=== PATIENT | female | born 1945 | race Caucasian/White ===

== ENCOUNTER 2017-09-16 22:36 | Emergency (ER) | payer OTHER ==
[2017-09-16] MEDS ORDERED: ASPIRIN 325 MG TABLET ONE (22:45)
[2017-09-16] MEDS ORDERED: ONDANSETRON HCL 4 MG/2 ML VIAL ONE (23:12)
[2017-09-16] MEDS ORDERED: MORPHINE SULFATE 4 MG/1ML SYG ONE (23:13)
[2017-09-16 23:28] LABS: BASOPHILS % (AUTO) 0.5 % (0.0-5.0); EOSINOPHILS % (AUTO) 0.2 % (0.0-8.0); HEMATOCRIT 38.8 % (36-48); MEAN CORPUSCULAR HEMOGLOBIN 32.6 pg (27.0-33.0); MEAN CORPUSCULAR HGB CONC 32.9 g/dL (32.0-36.0); MEAN CORPUSCULAR VOLUME 98.9 fL (79-99); MONOCYTES % (AUTO) 6.6 % (3.0-13.0); NEUTROPHILS % (AUTO) 84.7 % (40.0-77.0); PLATELET COUNT (AUTO) 262 K/uL (130-400); RED BLOOD CELL COUNT(AUTO) 3.92 MIL/uL (4.00-5.50); RED CELL DISTRIBUTION WIDTH 12.3 % (11.0-15.5); WHITE BLOOD COUNT (AUTO) 20.1 K/uL (4.8-10.8)
[2017-09-16 23:38] LABS: POTASSIUM 3.8 mmol/L (3.5-5.1)
[2017-09-16 23:39] LABS: INR 0.93 (0.85-1.15); PROTHROMBIN TIME 9.8 SEC (9.6-11.6)
[2017-09-17] LABS: ALBUMIN 4.2 g/dL (3.5-5.0); BILIRUBIN,TOTAL 0.4 mg/dL (0.2-1.0); CREATINE KINASE MB 0.5 ng/mL (0.5-3.6); TOTAL PROTEIN, SERUM 7.9 g/dL (6.0-8.3)
[2017-09-17] MEDS ORDERED: IOPAMIDOL-370 75 ML VIAL IV ONE (00:11)
[2017-09-17] MEDS ORDERED: MORPHINE SULFATE 2 MG/ML 1ML SYG ONE (00:14)
[2017-09-17] MEDS ORDERED: CEFTRIAXONE SODIUM 1 GM ONE (02:16)
[2017-09-17] MEDS ORDERED: AZITHROMYCIN 250 MG TABLET PO ONE (02:17)
== END 2017-09-17 02:52 | disposition home or self-care (01) ==
LOC: EDH 22:36
DX: R09.1 Pleurisy (principal); E78.5 Hyperlipidemia, unspecified; Z72.0 Tobacco use; Z98.890 Other specified postprocedural states; Z88.8 Allergy status to other drugs, medicaments and biological substances
CPT/HCPCS: 36415; 71045; 71100; 71275; 80053; 82550; 82553; 83874; 84484; 85025; 85378; 85610; 85730; 93005; 94761; 96374; 96375; 96376; 99285; J0696; J2270; J2405; Q9967

== ENCOUNTER → 2018-08-25 | Outpatient (CLI) | payer OTHER | END | disposition home or self-care (01) | LOC: RAH 09:49 | PROVIDERS: ATTEND Family Medicine | DX: M47.892 Other spondylosis, cervical region (principal); M85.88 Other specified disorders of bone density and structure, other site | CPT/HCPCS: 72040 ==

== ENCOUNTER 2019-02-06 21:27 | Inpatient (IN) | payer OTHER ==
[~2019-02-06] VITALS: Ht 157.5 cm; Wt 38.9 kg
[2019-02-06 22:01] LABS: BASOPHILS % (AUTO) 0.7 % (0.0-5.0); EOSINOPHILS % (AUTO) 0.4 % (0.0-8.0); HEMATOCRIT 37.8 % (36-48); LYMPHOCYTES % (AUTO) 24.4 % (21.0-51.0); MEAN CORPUSCULAR HGB CONC 33.5 g/dL (32.0-36.0); MEAN CORPUSCULAR VOLUME 98.3 fL (79-99); MONOCYTES % (AUTO) 12.6 % (3.0-13.0); NEUTROPHILS % (AUTO) 61.9 % (40.0-77.0); PLATELET COUNT (AUTO) 325 K/uL (130-400); RED BLOOD CELL COUNT(AUTO) 3.84 MIL/uL (4.00-5.50); RED CELL DISTRIBUTION WIDTH 12.4 % (11.0-15.5); WHITE BLOOD COUNT (AUTO) 7.4 K/uL (4.8-10.8)
[2019-02-06 22:13] LABS: CREATININE 0.9 mg/dL (0.5-1.5); POTASSIUM 4.1 mmol/L (3.5-5.1)
[2019-02-06 22:18] LABS: BILIRUBIN,TOTAL 0.6 mg/dL (0.2-1.0); TOTAL PROTEIN, SERUM 7.4 g/dL (6.0-8.3)
[2019-02-06] MEDS ORDERED: LIDOCAINE 5% TOPICAL PATCH TP ONE (22:36)
[2019-02-06] MEDS ORDERED: KETOROLAC TROMETHAMINE 30MG/ML ONE (22:36)
[2019-02-06] MEDS ORDERED: SODIUM CHLORIDE 0.9% 0 ML IV ONE (22:37)
[2019-02-06] MEDS ORDERED: SODIUM CHLORIDE 0.9% 500ML 500 ML IV ONE (22:38)
[2019-02-07] VITALS (7 sets, daily range): BP systolic 99–165; BP diastolic 59–74
--- NOTE | 2019-02-07 02:30 | NUR ---
ENEMA FLEETS ENEMA ADMINISTERED PER RECTUM X1, YELLOWISH EFFLUENT ,MODERATE AMOUNT PER BM X1 , BEDSIDE COMMODE IN PLACE Addendum: 02/07/19 at 0336 by LAXMI LUND RN RN Amended: Links added.
--- NOTE | 2019-02-07 02:35 | NUR ---
PO ADMINISTRATION GOLYTELY PREP INITIATED ORDERED,PT INSTRUCTED ,VERBALIZED UNDERSTANDING
[2019-02-07] MEDS ORDERED: MORPHINE SULFATE 2 MG/ML 1ML SYG IVP PRN (03:30)
[2019-02-07] MEDS ORDERED: PEG 3350/NA SULF,BICARB,CL/KCL 4000 ML SOLN PO SCH (03:30)
[2019-02-07] MEDS ORDERED: ONDANSETRON HCL 4 MG/2 ML VIAL IVP PRN (03:30)
[2019-02-07] MEDS ORDERED: TRAZ-187 PO (03:41)
[2019-02-07] MEDS ORDERED: OXYB5TAB10 PO (03:41)
[2019-02-07] MEDS ORDERED: VITA400C70 PO (03:41)
[2019-02-07] MEDS ORDERED: CHOL200074 PO (03:41)
[2019-02-07] MEDS ORDERED: CYCL10TA7 PO (03:41)
[2019-02-07] MEDS ORDERED: PRAV20TA4 PO (03:41)
--- NOTE | 2019-02-07 05:52 | NUR ---
ENEMA FLEETS ENEMA ADMINISTERED ORDERED, WITH GOOD RESULT , X1 BM MODERATE AMOUNT PASTY CONSISTENCY ,BROWN IN COLOR,TOLERATED WELL Addendum: 02/07/19 at 0554 by LAXMI LUND RN RN Amended: Links added.
--- NOTE | 2019-02-07 11:26 | NUR ---
INITIAL: Met with pt this morning to discuss dcp. Pt states that she lives alone. Prior to admission she was independent w ambulation and ADls. Pt states she has access to a walker and cane if needed. Per pt she was not receiving any services prior to admission. Pt states that she feels safe and comfortable to return home at [place]. She mentions that her brother may be able to provide transportation @ [place]. Will continue to follow and wait for Md recommendations. Addendum: 02/07/19 at 1127 by MARLEE FREEMAN CM Amended: Links added.
[2019-02-07] MEDS ORDERED: HYDROMORPHONE HCL 2 MG/ML VIAL IVP PRN (15:45)
[2019-02-07] MEDS ORDERED: HYDRALAZINE HCL 20 MG/ML VIAL IV PRN (15:45)
[2019-02-07] MEDS ORDERED: ZOLPIDEM TARTRATE 5 MG TAB PO PRN (15:45)
[2019-02-07] MEDS ORDERED: GUAIFENESIN-DM 200/20 MG 10 ML PO PRN (15:45)
[2019-02-07] MEDS ORDERED: LACTULOSE 20 GM/30 ML UDCUP PO PRN (15:45)
[2019-02-07] MEDS ORDERED: ACETAMINOPHEN 325 MG TAB PO PRN ×2 (15:45)
[2019-02-07] MEDS ORDERED: METOPROLOL TARTRATE 1 MG/ML 5ML VIAL IV PRN (15:45)
[2019-02-07] MEDS ORDERED: HYDROCODONE/ACETAMINOPHEN 5/325 MG TAB PO PRN (15:45)
[2019-02-07] MEDS ORDERED: ALPRAZOLAM 0.25 MG TABLET PO PRN (15:45)
[2019-02-07] MEDS ORDERED: PHARMACY COMMUNICATION MISC SCH (16:00)
[2019-02-07] MEDS: IPRATROPIUM/ALBUTEROL SULFATE 3 ML SOLUTION IH SCH ×2 (18:00→21:39)
[2019-02-07] MEDS: HYDROMORPHONE HCL 0.5 MG/0.5 ML ML IVP PRN (18:36)
[2019-02-07] MEDS ORDERED: IPRATROPIUM/ALBUTEROL SULFATE 3 ML SOLUTION IH PRN (22:15)
[2019-02-08 03:00] VITALS: BP 142/75
[2019-02-08 05:18] LABS: BASOPHILS % (AUTO) 1.1 % (0.0-5.0); EOSINOPHILS % (AUTO) 1.4 % (0.0-8.0); HEMATOCRIT 32.4 % (36-48); LYMPHOCYTES % (AUTO) 25.3 % (21.0-51.0); MEAN CORPUSCULAR HEMOGLOBIN 33.4 pg (27.0-33.0); MEAN CORPUSCULAR HGB CONC 34.1 g/dL (32.0-36.0); NEUTROPHILS % (AUTO) 60.2 % (40.0-77.0); PLATELET COUNT (AUTO) 309 K/uL (130-400); RED BLOOD CELL COUNT(AUTO) 3.31 MIL/uL (4.00-5.50); RED CELL DISTRIBUTION WIDTH 12.1 % (11.0-15.5); WHITE BLOOD COUNT (AUTO) 5.7 K/uL (4.8-10.8)
[2019-02-08 05:28] LABS: BILIRUBIN,TOTAL 0.6 mg/dL (0.2-1.0); CREATININE 0.8 mg/dL (0.5-1.5); POTASSIUM 3.8 mmol/L (3.5-5.1); TOTAL PROTEIN, SERUM 5.8 g/dL (6.0-8.3)
[2019-02-08] MEDS: HYDROMORPHONE HCL 0.5 MG/0.5 ML ML IVP PRN (06:34)
[2019-02-08 08:00] VITALS: BP 113/65
--- NOTE | 2019-02-08 11:37 | NUR ---
notified dr. duron that the cardiology consult was done for cardiac clearance for surgery. dr. fay order 2d echo and stress test. the stress test cannot be done today the patient because the patient drink coffee the stress lab verbalized that they cannot do the stress test and the patient has to be 24 hours without caffeine[address] dr. duron was made aware of this situation and he ordered to reschedule the vertibroplasty of t8 on the 01/31/19 at 730 am. notified the housesuper Sabrina and she instructed to reorder the procedure and schedule it on 02/10 730 and fax the order to her.
[2019-02-08 12:00] VITALS: BP 123/70
[2019-02-08 16:00] VITALS: BP 131/90
[2019-02-08] MEDS: KETOROLAC TROMETHAMINE 30MG/ML IM PRN (16:25)
[2019-02-08 19:00] VITALS: BP 136/73
[2019-02-08 23:25] VITALS: BP 121/71
[2019-02-09 03:25] VITALS: BP 142/73
[2019-02-09 06:02] LABS: HEMATOCRIT 33.4 % (36-48); MEAN CORPUSCULAR HGB CONC 34.7 g/dL (32.0-36.0); PLATELET COUNT (AUTO) 289 K/uL (130-400); RED BLOOD CELL COUNT(AUTO) 3.41 MIL/uL (4.00-5.50); WHITE BLOOD COUNT (AUTO) 6.3 K/uL (4.8-10.8)
[2019-02-09 06:09] LABS: CREATININE 0.7 mg/dL (0.5-1.5)
[2019-02-09 07:00] VITALS: BP 123/76
[2019-02-09 11:00] VITALS: BP 141/72
[2019-02-09] MEDS ORDERED: REGADENOSON 0.4 MG/5 ML PF SYG IVP SCH (11:15)
[2019-02-09] MEDS: HYDROMORPHONE HCL 0.5 MG/0.5 ML ML IVP PRN ×2 (14:03→22:53)
--- NOTE | 2019-02-09 14:11 | NUR ---
RD Notification Patient tolerating Clear liquid diet. Patient NPO this AM for procedure. Patient report of hunger/desire for solid foods, however pending multiple procedures as per patient. SHAKEEL rec to add Ensure Clear with meals. Patient LBM 02/07/19. Patient monitored labs: AST 62, ALT 140, Alk 306, Alb 3.0. Addendum: 02/09/19 at [address] RD Amended: Links added.
[2019-02-09 16:00] VITALS: BP 131/80
--- NOTE | 2019-02-09 20:07 | NUR ---
HE[facility] CLIN[facility] PAGE PLACED
--- NOTE | 2019-02-09 20:16 | NUR ---
DR. JEAN-BAPTISTE HAS CALLED BACK STATING THAT HE IS CERTAIN DR. LAMBERT WILL READ EXAMS TONIGHT
[2019-02-09 20:19] VITALS: BP 142/70
--- NOTE | 2019-02-09 20:44 | NUR ---
DR. LAMBERT TEXT MESSAGE SENT VIA HOSPITAL CELL PHONE REGARDING CARDIAC CLEARANCE PENDING FOR SURGERY
--- NOTE | 2019-02-09 21:15 | NUR ---
DR. FLOREZ HERE TO READ AN ECHO ON HIS PATIENT. READ THIS PATIENTS ECHO BUT UNABLE TO GIVE CARDIAC CLEARANCE HE IS NOT FAMILIAR WITH THIS PATIENT.
--- NOTE | 2019-02-09 21:49 | NUR ---
DR. NOE TEXT SENT VIA HOSPITAL CELL PHONE REQUESTING ASSISTANCE IN CLEARING PATIENT FOR SURGERY.
--- NOTE | 2019-02-09 21:58 | NUR ---
DR. LAMBERT RECEIVED TEXT STATING THAT HE WAS IN [place] AND WOULD BE IN @ 0700 TO READ STUDIES.
--- NOTE | 2019-02-09 22:17 | NUR ---
DR. NOE HAS TEXTED BACK STATING THAT NORMAL STUDIES "WILL LIKELY LEAD TO DR. LAMBERT OK'ING SURGERY."
--- NOTE | 2019-02-09 22:29 | NUR ---
DR. OSPINA HE HAS BEEN NOTIFIED THAT WE ARE, STILL, ATTEMPTING TO OBTAIN CARDIAC CLEARANCE FOR SURGERY.
--- NOTE | 2019-02-09 22:34 | NUR ---
DR. LAMBERT HAS TEXTED THAT DR. JEAN-BAPTISTE WILL READ STUDIES
--- NOTE | 2019-02-09 22:41 | NUR ---
DR. JEAN-BAPTISTE HAS CALLED US STATING THE PATIENT HAS BEEN CARDIAC CLEARED FOR SURGERY
--- NOTE | 2019-02-09 22:43 | NUR ---
DR. ANAI HAMPTON
--- NOTE | 2019-02-09 22:44 | NUR ---
DR. OSPINA HAS CALLED BACK AND HAS BEEN INFORMED THAT THE PATIENT HAS BEEN CARDIAC CLEARED FOR SURGERY IN THE A.M.
[2019-02-10] VITALS (24 sets, daily range): BP systolic 113–157; BP diastolic 57–111
[2019-02-10] MEDS: HYDROMORPHONE HCL 0.5 MG/0.5 ML ML IVP PRN ×2 (05:01→15:52)
[2019-02-10 05:51] LABS: INR 1.03 (0.85-1.15); PARTIAL THROMBOPLASTIN TIME 28.2 SEC (26.3-35.5); PROTHROMBIN TIME 10.8 SEC (9.6-11.6)
[2019-02-10] MEDS ORDERED: LIDOCAINE PF 2% 5ML ABBOJECT ONE (06:29)
[2019-02-10] MEDS ORDERED: PROPOFOL 10 MG/ML 20ML VIAL IV ONE (06:29)
[2019-02-10] MEDS ORDERED: MIDAZOLAM HCL 1 MG/ML 5ML VIAL ONE (06:29)
[2019-02-10] MEDS ORDERED: FENTANYL CITRATE PF 50 MCG/1 ML 2ML VIAL ONE (06:29)
[2019-02-10] MEDS ORDERED: LACTATED RINGERS 1000ML 1,000 ML IV ONE (06:40)
[2019-02-10] MEDS ORDERED: LIDOCAINE HCL 1% 20 ML VIAL ONE (06:54)
[2019-02-10] MEDS ORDERED: CEFAZOLIN SODIUM 1 GM VIAL ONE (07:23)
[2019-02-10] MEDS: KETOROLAC TROMETHAMINE 30MG/ML IM PRN (20:33)
[2019-02-11 00:01] VITALS: BP 126/60
[2019-02-11 03:46] VITALS: BP 134/75
[2019-02-11 08:00] VITALS: BP 116/65
[2019-02-11] MEDS: KETOROLAC TROMETHAMINE 30MG/ML IM PRN (11:38)
[2019-02-11 12:00] VITALS: BP 149/76
--- NOTE | 2019-02-11 15:10 | NUR ---
DR. OSPINA PAGED RE; D/C ORDERS, NO CALL BACK
[2019-02-11 16:00] VITALS: BP 133/73
--- NOTE | 2019-02-11 17:20 | NUR ---
DR. OSPINA CLEARED TO D/C PT. HOME.
--- NOTE | 2019-02-11 18:03 | NUR ---
PT DISCHARGED HOME USING TEACH BACK TECHNIQUE RE; HOME MEDS, S/S TO WATCH FOR AND WHEN TO CALL 911 OR MD, FOLLOW UP WITH YOUR PRIMARY DOCTOR IN 1-2 WEEKS. FOLLOW UP WITH DR. OSPINA ON 02/18/2019 AT 10:30AM. CALL IF UNABLE TO ATTEND APPOINTMENT AT PHONE [phone]. MAKE SURE TO WASH INCISION WITH SOAP AND WATER TO DO NOT RUB OR SCRUB JUST CLEANSE, AND PAT DRY WITH CLEAN TOWEL AND MAY COVER WITH BAN AID. MAKE SURE TO WASH HANDS PRIOR TO CHANGING DRESSING. IF FEVERS, DRAINAGE NOTED, HOT TO TOUCH, PAIN OR SWELLING CALL YOUR PRIMARY DOCTOR OR THE SURGEON. IF SHORTNESS OF BREATH OR CHEST PAIN DOES NOT RESOLVE WITH REST CALL 911. IV OUT INTACT, DRESSING CHANGED NO BLEEDING POST. AAOX3, NO DISTRESS, BROTHER AT BEDSIDE.
== END 2019-02-11 18:05 | disposition home or self-care (01) | DRG 517 ==
LOC: EDH 21:27 → EDHIP 02-07 01:15 → OBSVTOIN 02-07 01:15 → 3BH 02-07 01:45
PROVIDERS: ADMIT Internal Medicine; ATTEND Internal Medicine
PROC: BR171ZZ Fluoroscopy of Thoracic Spine using Low Osmolar Contrast (ICD-10-PCS; 2019-02-10)
PROC: 0PU43JZ Supplement Thoracic Vertebra with Synthetic Substitute, Percutaneous Approach (ICD-10-PCS; principal; 2019-02-10 07:00)
DX: M48.54XA Collapsed vertebra, not elsewhere classified, thoracic region, initial encounter for fracture (principal); E78.5 Hyperlipidemia, unspecified; F17.200 Nicotine dependence, unspecified, uncomplicated; R09.89 Other specified symptoms and signs involving the circulatory and respiratory systems; R01.1 Cardiac murmur, unspecified; F41.9 Anxiety disorder, unspecified; G89.4 Chronic pain syndrome; K59.00 Constipation, unspecified; Z71.6 Tobacco abuse counseling
CPT/HCPCS: 36415; 72072; 72146; 74018; 74176; 78452; 80048; 80053; 82150; 83690; 84484; 85025; 85027; 85610; 85730; 86140; 93005; 93017; 93306; 94640; 94664; 96374; A9500; G0378; J0690; J1170; J1885; J2001; J2250; J2704; J2785; J3010; J7040; J7120

== ENCOUNTER → 2019-02-22 | Outpatient (CLI) | payer OTHER ==
[~2019-02-22] MED LIST: CHOL200074 PO; CYCL10TA7 PO; OXYB5TAB10 PO; PRAV20TA4 PO; TRAZ-187 PO; VITA400C70 PO
== END | disposition home or self-care (01) ==
LOC: RAH 08:58
PROVIDERS: ATTEND Neuromusculoskeletal Medicine & OMM
DX: M47.814 Spondylosis without myelopathy or radiculopathy, thoracic region (principal); M47.816 Spondylosis without myelopathy or radiculopathy, lumbar region; M48.54XA Collapsed vertebra, not elsewhere classified, thoracic region, initial encounter for fracture
CPT/HCPCS: 72072; 72100

== ENCOUNTER 2020-03-02 05:53 | Day surgery (SDC) | payer OTHER ==
[2020-03-01 10:44] LABS: BASOPHILS % (AUTO) 0.9 % (0.0-5.0); HEMATOCRIT 41.4 % (36-48); LYMPHOCYTES % (AUTO) 24.3 % (21.0-51.0); MEAN CORPUSCULAR HEMOGLOBIN 32.7 pg (27.0-33.0); MEAN CORPUSCULAR HGB CONC 33.1 g/dL (32.0-36.0); MEAN CORPUSCULAR VOLUME 98.8 fL (79-99); MONOCYTES % (AUTO) 10.7 % (3.0-13.0); NEUTROPHILS % (AUTO) 62.8 % (40.0-77.0); PLATELET COUNT (AUTO) 241 K/uL (130-400); RED BLOOD CELL COUNT(AUTO) 4.19 MIL/uL (4.00-5.50); RED CELL DISTRIBUTION WIDTH 11.9 % (11.0-15.5); WHITE BLOOD COUNT (AUTO) 7.7 K/uL (4.8-10.8)
[2020-03-01 11:08] LABS: CREATININE 1.1 mg/dL (0.5-1.5); POTASSIUM 3.9 mmol/L (3.5-5.1)
[2020-03-01 11:24] LABS: INR 0.91 (0.85-1.15); PARTIAL THROMBOPLASTIN TIME 26.3 SEC (26.3-35.5); PROTHROMBIN TIME 9.9 SEC (9.6-11.6)
[2020-03-01 12:11] VITALS: BP 144/85
--- NOTE | 2020-03-01 13:21 | NUR ---
RE: ABNORMAL EKG INFORMED DR SUTTON OF PATIENT'S ABNORMAL EKG, NO NEW ORDERS. MAY PROCEED WITH SURGERY.
[2020-03-02] VITALS (12 sets, daily range): BP systolic 109–136; BP diastolic 47–71
[~2020-03-02] VITALS: Ht 156.2 cm; Wt 44.7 kg
[~2020-03-02 05:53] MED LIST changes: +ALEN70TA10 PO; +BACL10TA PO; +CEFAZOLIN SODIUM 1 GM VIAL IVP SCH; -CHOL200074 PO; -CYCL10TA7 PO; +FISH1CAP50 PO; +MIRT15TA6 PO; -OXYB5TAB10 PO; +SODIUM CHLORIDE 0.9% 1000ML 1,000 ML IV SCH; +VITA-164 PO; -VITA400C70 PO
--- NOTE | 2020-03-02 06:30 | NUR ---
preop pt arrived to holding unit in no distress for kyphoplasty surgery. pt oriented to room and call light. pt made comfortable in stretcher.
[2020-03-02] MEDS ORDERED: LACTATED RINGERS 1000ML 1,000 ML IV ONE (06:43)
[2020-03-02] MEDS ORDERED: LIDOCAINE 1%-EPI 1:100,000 20 ML VIAL IJ ONE (07:09)
[2020-03-02] MEDS ORDERED: IOPAMIDOL 10 ML VIAL ONE (08:00)
[2020-03-02] MEDS ORDERED: FENTANYL CITRATE PF 50 MCG/1 ML 2ML VIAL ONE (08:24)
[2020-03-02] MEDS ORDERED: MIDAZOLAM HCL 1 MG/ML 2ML VIAL ONE (08:24)
== END 2020-03-02 11:35 | disposition home or self-care (01) ==
LOC: DAH 05:53
PROVIDERS: ATTEND Neuromusculoskeletal Medicine & OMM
DX: M80.88XA Other osteoporosis with current pathological fracture, vertebra(e), initial encounter for fracture (principal); E78.5 Hyperlipidemia, unspecified; Z79.01 Long term (current) use of anticoagulants; Z79.899 Other long term (current) drug therapy; Z11.59 Encounter for screening for other viral diseases
CPT/HCPCS: 22510; 36415; 71045; 72074; 80048; 81025; 85025; 85610; 85730; 87635; 93005; A4213; A4215; A4221; A4222; A4223; A4649; A4663; A4930; A6260; C1763; J0690 ×2; J2250; J3010; J3490; J7030; J7120